=== PATIENT | female | born 2000 | race Caucasian/White ===

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

== ENCOUNTER 2020-03-15 16:42 | Emergency (ER) | payer BC, SELFPAY ==
[2020-03-15 17:00] VITALS: BP 122/71; PULSE 106; RESP 14; TEMP 37.8; O2SAT 100
--- NOTE | 2020-03-15 17:57 | ED.GENADULT ---
HPI - General Adult General Chief complaint: Urogenital-Female Stated complaint: std testing Source: patient Mode of arrival: ambulatory Limitations: no limitations History of Present Illness HPI narrative: 19 y/o female. Presents to clinic today with acute complaints of exposed to an STD . She reports to remain entirely asymptomatic at this time. However, was just told the kevin she slept with 1 week ago has an STD . She is not sure which one . No fever, chills, abdominal pain, pelvic pain, dysuria, hematuria, loose stool. She is requesting venereal disease treatment. Related Data Allergies Allergy/AdvReac Type Severity Reaction Status Date / Time No Known Allergies Allergy Verified 03/15/20 17:55 Review of Systems Review of Systems: Narrative: CONSTITUTIONAL: Denies fever, chills, sweats. EYES: Denies visual changes, redness, discharge. ENT: Denies rhinorrhea, congestion, sore throat, otalgia. CARDIOVASCULAR: Denies chest pain, palpitations, edema. RESPIRATORY: Denies dyspnea, wheezing, cough GASTROINTESTINAL: Denies abdominal pain, nausea, vomiting, diarrhea. GENITOURINARY: Denies dysuria, hematuria, abnormal discharge SKIN: Denies rash or itching. MUSCULOSKELETAL: Denies acute back pain, joint pain, or myalgia. NEUROLOGIC: Denies numbness, or focal weakness. PSYCHIATRIC: Denies anxiety or depression. Exam Narrative: Exam Narrative: GENERAL: This is a well-nourished, well-developed patient, in no apparent distress. HEAD: normocephalic, atraumatic. EYES: PERRL. Sclera clear/white. Vision is grossly intact. EARS: External ears normal, auditory canals clear and without drainage, TMs normal without perforation. Hearing grossly intact. NOSE: External nose normal with no obvious nasal discharge, nares without redness, no rhinorrhea. THROAT: Mucous membranes moist, posterior pharynx clear. NECK: Neck supple, non-tender without lymphadenopathy, masses or thyromegaly. CARDIOVASCULAR: Regular rate and rhythm without murmurs, gallops, or rubs. RESPIRATORY: Clear to auscultation. Breath sounds equal bilaterally. No wheezes, rales, or rhonchi. GASTROINTESTINAL: Abdomen soft, non-tender, nondistended. Bowel sounds are active. No hepato-splenomegaly, or palpable masses. No guarding. SKIN: warm, intact with no suspicious lesions or rash, good texture and turgor. NEURO: awake, alert, and oriented to person, place and time. There were no obvious focal neurologic abnormalities. Steady gait EXTREMITIES: Normal range of motion. No edema. No calf tenderness. Negative Homans sign bilaterally. BACK: Nontender without deformity or crepitance. No flank tenderness. NEURO: Alert and oriented x4. No acute neuro deficits. Course Course Emergency Course: Client has been treated in Urgent care today with [facility] regimen for treatment of suspected venereal disease. In addition, she has been provided options for Health dept follow-up and additional testing as warranted. Safe sex practices reviewed. Vital Signs Vital signs: Vital Signs Temperature 37.8 C H 03/15/20 17:00 Pulse Rate 106 H 03/15/20 17:00 Respiratory Rate 14 03/15/20 17:00 Blood Pressure 122/71 03/15/20 17:00 Pulse Oximetry 100 03/15/20 17:00 Temperature 37.8 C H 03/15/20 17:00 Pulse Rate 106 H 03/15/20 17:00 Respiratory Rate 14 03/15/20 17:00 Blood Pressure 122/71 03/15/20 17:00 Pulse Oximetry 100 03/15/20 17:00 Medical Decision Making Differential Diagnosis Differential Diagnosis: Differential Diagnosis: Consideration of the following conditions may be warranted for the presenting problem, they are not final diagnoses: UTI, Cystitis, bacterial vaginosis, candidiasis, vaginitis, STD, syphilis, herpes Medical Records Medical records reviewed: Yes I reviewed the patient's medical records. Vital Signs Vital Signs: Vital Signs Temperature 37.8 C H 03/15/20 17:00 Pulse Rate 106 H 03/15/20 17:00 Respiratory Rate 14 03/15/20 17:00 Blo
[2020-03-15] MEDS: LIDOCAINE HCL 1% LOCAL INJ 20 ML VIAL IM (18:07)
[2020-03-15] MEDS: cefTRIAXone 250 MG VIAL IM (18:07)
[2020-03-15] MEDS: AZITHROMYCIN 250 MG TABLET 1000 MG PO (18:10)
--- NOTE | 2020-03-15 18:19 | PC.NURSE ---
PROVIDER DID NOT WANT A CULTURE ORDERED.
== END 2020-03-15 18:30 | disposition home or self-care (01) ==
PROVIDERS: Emergency Provider Nurse Practitioner Adult Health
DX: Z20.2 Contact with and (suspected) exposure to infections with a predominantly sexual mode of transmission (principal); Z72.51 High risk heterosexual behavior
CPT/HCPCS: 81003; 81025; 87491; 87591; 87661; 96372; 99214; A9270; G0463; J0696

== ENCOUNTER 2024-09-10 13:20 | Outpatient (CLI) | payer BC, SELFPAY ==
--- NOTE | ~2024-09-10 | US_ITS ---
Pelvic ultrasound. Clinical History: Encounter for checkup IUD Technique: Realtime transabdominal and transvaginal scanning of the pelvis was performed. Color flow Doppler and Doppler spectral analysis were performed. Findings: The uterus is anteverted, and measures 7.3 x 3.7 x 5.2 cm. The endometrial stripe has a th ickness of 7 mm. IUD in satisfactory position. No focal mass is identified. The right ovary measures 3.1 x 3.3 x 2.3 cm. No significant right ovarian or adnexal mass is seen. The left ovary measures 3.5 x 2.4 x 2.0 cm. There is a somewhat complex area in the left adnexal torin on, of uncertain etiology. This region measures 4.9 x 2.5 cm in extent.. There is no evidence of free fluid in the cul de sac. Impression: IUD in satisfactory position. Suggestion of complex extra ovarian area or lesion in the left adnexal region, without distinct peris talsis. Precise etiology is unclear. Consider CT with contrast to further assess, if clinically indic ated. Reviewed, dictated and finalized at [facility]. Impression: IUD in satisfactory position. Suggestion of complex extra ovarian area or lesion in the left adnexal region, without distinct peristalsis. Precise etiology is unclear. Consider CT with con trast to further assess, if clinically indicated.
== END 2024-09-10 13:21 | disposition home or self-care (01) ==
LOC: MICIMG 13:20
PROVIDERS: PCP Nurse Practitioner Family; Visit Provider Nurse Practitioner Family
DX: Z30.431 Encounter for routine checking of intrauterine contraceptive device (principal)
CPT/HCPCS: 76830; 76856

== ENCOUNTER 2024-09-22 10:59 | Outpatient (CLI) | payer BC, SELFPAY ==
--- NOTE | ~2024-09-22 | CT_ITS ---
EXAMINATION: CT pelvis wo/w con DATE: 09/22/2024 11:24 INDICATION: Pelvis TECHNIQUE: Computed tomography (CT) of the pelvis was performed without and 100 cc Omnipaque 350 intr avenous contrast. The dose-length product was 338.08 mGy-cm. Automated exposure control and iterative reconstruction technique were employed. COMPARISON: Ultrasound pelvis dated 09/10/2024 FINDINGS: Nonobstructive bowel gas pattern. Moderate free fluid in the pelvis. IUD present in the end ometrium. Low-density mass present in the left adnexa, possibly the ovary with follicular changes or mass. There is mild mass effect on the uterus. No free air. IMPRESSION: 1. Hypovascular mass left adnexa measuring 5.1 x 4.3 cm greatest axial dimension, likely the ovary. C annot exclude complex ovarian mass versus underlying follicular changes. Recommend correlation with M RI pelvis without and with contrast. 2: Moderate free fluid in the pelvis. Reviewed, dictated and finalized at location [facility]. IMPRESSION: 1. Hypovascular mass left adnexa measuring 5.1 x 4.3 cm greatest axial dimensio n, likely the ovary. Cannot exclude complex ovarian mass versus underlying foll icular changes. Recommend correlation with MRI pelvis without and with contrast . 2: Moderate free fluid in the pelvis.
--- OUTSIDE RECORDS SUMMARY | 2024-09-22 11:39 | XMS_ITS | Clinical Summary ---
Author Organization [facility] Address [address] [place] [phone] Phone Care Team Providers Care Position Classification Manager Name Role Phone Provider, Unknown Primary Care Provider Unavaila ble Allergies No known active allergies Medications No known medications Active Problems No known active problems Immunizations Immunization Administration Dates Next Due Covid-19, Mrna, Lnp-s, Pf, 3 0 Mcg/0.3 Ml Dose (Infotop) 03/22/2021,12/21/2020 DTAP VACCINE 07/10/2005, 2,01/17/2001,11/13,2000 HEP B/HIB Combined Vaccine 01/17/2001,2000 Hepatitis A Vaccine, Pediatric/adolescent, 2 Dose Schedule 12/09/2012,10/04/2011 Hepatitis B Vaccine,unspecif ied Formulation 2000 Hib Vaccine,unspecified Formulation 10/30/2001,0 2000 Human Papillomavirus (HPV) 9 -valent Vaccine 03/17/2015 Human Papillomavirus Vaccine (HPV), quadrivalent 06/19/2014 Inactivated Polio Vaccine 07/10/2005,,2000,09/19 Influenza Vaccine Quadrivalent Nasal 12/09/2012 MMR Vaccine 07/10/2005,10/30/2001 Meningococcal MCV4O 10/04/2011 Meningococcal Vaccine 01/07/2018 Pneumococcal Vaccine Peds - 7 Valent ,02/04/2002,07/30/2001,01/17,2000 TDAP Vaccine 10/04/2011 Varicella Vaccine Live 06/19/2014,10/30/2001 Social History Tobacco Use Types Packs/Day Years Used Date Smoking Tobacco: Never Smokeless Tobacco: Never Tobacco Cessation:Counseling Given: Not Answered Alcohol Use Standard Drinks/Week Comments Yes 0 (1 standard drink = 0.6 oz pur e alcohol) Sexually Active Control Partners Comments Yes Comments Unknown Sex and Gender Information Value Date Recorded Sex Assigned at Not on file Legal Sex Female 10:49 PM CDT Gender Identity Not on file Sexual Orientation Not on file Last Filed Vital Signs Vital Sign Reading Time Taken Comments Blood Pressure 116/76 05/19/2023 4:50 PM GALLERY ASSISTANT Pulse 84 05/19/2023 4:50 PM GALLERY ASSISTANT Temperature 37.6 C (99.7 F) 05/19/2023 4:50 PM GALLERY ASSISTANT Respiratory Rate 16 05/19/2023 4:50 PM GALLERY ASSISTANT Oxygen Saturation 100% 05/19/2023 4:50 PM GALLERY ASSISTANT Inhaled Oxygen Concentration - - Weight - - Height - - Body Mass Index - - Plan of Treatment Health Maintenance Due Date Last Done Comments Hepatitis C Virus (HCV) Screening 2000 Meningococcal B Immunization (1 of 2 - Standard) 2016 Pap Smear 2021 DTaP/Tdap/Td Immunization (7 - Td or Tdap) 10/03/2021 10/04/2011, 07/10/2005, 02/04/2002, Additional history exists Influenza Immunization (#1) 2023 12/09/2012 SARS-COV-2 Immunization ( season) 2023 03/22/2021, 12/21/2020 Respiratory Syncytial Virus (RSV) Immunization (Adult) (1 - 1-dose 75+ series) 07/13/2075 Hepatitis B Immunization Completed 001, 2000, 2000 Pneumococcal Immunization Combined Aged Out 07/18/2004, 02/04/2002, 07/30/2001, Additional history exists No longer eligible based on patient's age to complete this topic Human Papillomavirus (HPV) Immunization Completed 03/17/2015, 06/19/2014 Meningococcal Immunization (ACWY) Completed 01/07/2018, 10/04/2011 Rotavirus Immunization Aged Out No lo nger eligible based on patient's age to complete this topic Insurance [facility] Care Teams Position Classification Manager Relationship Specialty Start Date End Date Provider, Unknown UNKNOWN PCP - General 05/19/23
== END 2024-09-22 11:00 | disposition home or self-care (01) ==
PROVIDERS: PCP Nurse Practitioner Family; Visit Provider Nurse Practitioner Family
DX: R93.89 Abnormal findings on diagnostic imaging of other specified body structures (principal); N94.89 Other specified conditions associated with female genital organs and menstrual cycle
CPT/HCPCS: 72194; Q9967